=== PATIENT | male | born 1990 | race Two or more races ===

== ENCOUNTER 2019-01-14 14:10 | Emergency (ER) | payer SELFPAY ==
--- NOTE | 2019-01-14 14:50 | ED Physician Chart ---
ED Chief Complaint/HPI - Patient Information Date Seen:: 01/14/19 Time Seen:: 14:45 Chief Complaint:: sinus headache History of Present Illness:: this is a 28 yr old with symptoms of recurrent sinus headache without nausea, vomiting or fever. he denies all other medical problems. the headache have been on and off for several months. he states that he recently had a ct scan. Allergies:: Allergies Allergy/AdvReac Type Severity Reaction Status Date / Time No Known Allergies Allergy Verified 01/14/19 14:19 Vitals:: Vital Signs - 8 hr 01/14/19 01/14/19 14:19 14:43 Temp 98.6 F 98.6 F HR 80 80 RR 18 18 BP 148/78 148/78 O2 Sat % 100 Historian:: Patient Review:: Nurse's Note Reviewed ED Review of Systems - Review of Systems General/Constitutional: No fever, No chills, No weight loss, No weakness, No diaphoresis, No edema, No loss of appetite Skin: No skin lesions, No rash, No bruising Head: Headache, No light-headedness Eyes: No loss of vision, No pain, No diplopia ENT: No earache, No nasal drainage, No sore throat, No tinnitus Neck: No neck pain, No swelling, No thyromegaly, No stiffness, No mass noted Cardio Vascular: No chest pain, No palpitations, No PND, No orthopnea, No edema Pulmonary: No SOB, No cough, No sputum, No wheezing GI: No nausea, No vomiting, No diarrhea, No pain, No melena, No hematochezia, No constipation, No hematemesis G/U: No dysuria, No frequency, No hematuria Musculoskeletal: No bone or joint pain, No back pain, No muscle pain Endocrine: No polyuria, No polydipsia Psychiatric: No prior psych history, No depression, No anxiety, No suicidal ideation Hematopoietic: No bruising, No lymphadenopathy Allergic/Immuno: No urticaria, No angioedema Neurological: No syncope, No focal symptoms, No weakness, No paresthesia, No headache, No seizure, No dizziness, No confusion, No vertigo ED Past Medical History - Past Medical History Obtainable: Yes Past Medical History: No significant medical hx Family History: None Social History: Non Smoker, No Alcohol, No Drug Use, Employed Surgical History: None Psychiatricy History: None Medication: Reviewed Family Medical History - Family Member Mother History Unknown: Yes Ethnicity: Living Status: Still Living ED Physical Exam - Physical Examination General/Constitutional: Awake, Well-developed, well-nourished, Alert, No distress, GCS 15, Non-toxic appearing, Ambulatory Head: Atraumatic Eyes: Lids, conjuctiva normal, PERRL, EOMI Skin: Nl inspection, No rash, No skin lesions, No ecchymosis, Well hydrated, No lymphadenopathy ENMT: External ears, nose nl, Nasal exam nl, Lips, teeth, gums nl Other ENMT comments:: maxillary area tenderness bilaterally Neck: Nontender, Full ROM w/o pain, No JVD, No nuchal rigidity, No bruit, No mass, No stridor Respiratory: Nl effort/Exclusion, Clear to Auscultation, No Wheeze/Rhonchi/Rales Cardio Vascular: RRR, No murmur, gallop, rubs, NL S1 S2 GI: No tenderness/rebounding/guarding, No organomegaly, No hernia, Normal BS's, Nondistended, No mass/bruits, No McBurney tenderness : No CVA tenderness Extremities: No tenderness or effusion, Full ROM, normal strength in all extremities, No edema, Normal digits & nails Neuro/Psych: Alert/oriented, DTR's symmetric, Normal sensory exam, Normal motor strength, Judgement/insight normal, Mood normal, Normal gait, No focal deficits Misc: Normal back, No paraspinal tenderness ED Assessment - Assessment General Assessment: sinus infection ED Septic Shock - . Is Septic Shock (SBP<90, OR Lactate>4 mmol\L) present?: No - <6hrs of presentation: Vital Signs: Vital Signs - 8 hr 01/14/19 01/14/19 14:19 14:43 Temp 98.6 F 98.6 F HR 80 80 RR 18 18 BP 148/78 148/78 O2 Sat % 100 ED Reassessment (Disposition) - Reassessment Reassessment Condition:: Unchanged - Diagnosis Diagnosis:: sinus infection sinus headache - Aftercare/Follow up Instructions Aftercare/Follow-Up Instructions:: Counseled pt regarding lab results/diagnosis & need follow up, Refer to Discharge Instructions, Counseled pt & family regarding lab results/diagnosis & need follow up Medication Prescribed:: [id number]-walter, prednisone - Patient Disposition Discharge/Transfer:: Home Condition at Disposition:: Unchanged
== END 2019-01-14 14:57 | disposition left against medical advice (07) ==
LOC: ER 14:10
DX: J32.0 Chronic maxillary sinusitis (principal); R51 Headache
CPT/HCPCS: Z7502

== ENCOUNTER 2019-01-18 18:29 | Emergency (ER) | payer MEDICAID ==
--- NOTE | 2019-01-18 19:05 | ED Physician Chart ---
ED Chief Complaint/HPI - Patient Information Date Seen:: 01/18/19 Time Seen:: 19:01 Chief Complaint:: sore throat History of Present Illness:: 28 yr old male with sore throat for 3-4 days no fever cough or nv no chest or abd pain no headache or dizziness Allergies:: Allergies Allergy/AdvReac Type Severity Reaction Status Date / Time No Known Allergies Allergy Verified 01/14/19 14:19 Vitals:: Vital Signs - 8 hr 01/18/19 18:45 Temp 97.5 F HR 74 RR 16 BP 139/96 O2 Sat % 100 ED Review of Systems - Review of Systems General/Constitutional: No fever Skin: No skin lesions Head: No headache ENT: Sore throat Neck: No neck pain Cardio Vascular: No chest pain Pulmonary: No SOB GI: No vomiting G/U: No dysuria Endocrine: No polyuria Psychiatric: No depression Hematopoietic: No bruising Allergic/Immuno: No urticaria Neurological: No focal symptoms ED Past Medical History - Past Medical History Past Medical History: No significant medical hx Family Medical History - Family Member Mother History Unknown: Yes Ethnicity: Living Status: Still Living ED Physical Exam - Physical Examination General/Constitutional: Awake, Well-developed, well-nourished, Alert, No distress, GCS 15, Non-toxic appearing, Ambulatory Head: Atraumatic Eyes: Lids, conjuctiva normal, PERRL, EOMI Skin: Nl inspection, No rash, No skin lesions, No ecchymosis, Well hydrated, No lymphadenopathy ENMT: External ears, nose nl, Nasal exam nl, Lips, teeth, gums nl Other ENMT comments:: mild reddness post pharynx and tender rt submandibular glands Neck: Nontender, Full ROM w/o pain, No JVD, No nuchal rigidity, No bruit, No mass, No stridor Respiratory: Nl effort/Exclusion, Clear to Auscultation, No Wheeze/Rhonchi/Rales Cardio Vascular: RRR, No murmur, gallop, rubs, NL S1 S2 GI: No tenderness/rebounding/guarding, No organomegaly, No hernia, Normal BS's, Nondistended, No mass/bruits, No McBurney tenderness : No CVA tenderness Extremities: No tenderness or effusion, Full ROM, normal strength in all extremities, No edema, Normal digits & nails Neuro/Psych: Alert/oriented, DTR's symmetric, Normal sensory exam, Normal motor strength, Judgement/insight normal, Mood normal, Normal gait, No focal deficits Misc: Normal back, No paraspinal tenderness ED Assessment - Assessment General Assessment: sore throat ED Septic Shock - . Is Septic Shock (SBP<90, OR Lactate>4 mmol\L) present?: No - <6hrs of presentation: Vital Signs: Vital Signs - 8 hr 01/18/19 18:45 Temp 97.5 F HR 74 RR 16 BP 139/96 O2 Sat % 100 ED Reassessment (Disposition) - Reassessment Reassessment:: sore throat - Diagnosis Diagnosis:: sore throat - Aftercare/Follow up Instructions Aftercare/Follow-Up Instructions:: Counseled pt regarding lab results/diagnosis & need follow up Medication Prescribed:: amox - Patient Disposition Discharge/Transfer:: Home Condition at Disposition:: Stable
== END 2019-01-18 19:24 | disposition home or self-care (01) ==
LOC: ER 18:29
DX: J02.9 Acute pharyngitis, unspecified (principal)
CPT/HCPCS: Z7502